=== PATIENT | female | born 1985 | race American Indian/Alaskan Native ===

== ENCOUNTER 2017-02-04 10:32 | Emergency (ER) | payer OTHER ==
[2017-02-04 10:39] VITALS: RESP 18; TEMP 99.8
--- NOTE | 2017-02-04 11:23 | C.PDOC ---
History Of Present Illness Patient is a 31 year old female who presents to the ER with a complaint of a left sided sore throat and left ear pain since yesterday, associated with a subjective fever. Patient states initially she only had a sore throat but now pain has moved to ears. Patient notes pain with swallowing but is tolerating liquids without difficulty. Patient denies ear discharge, hearing loss, possible foreign body in left ear or possible sick contact. L SORE THROAT AND EAR PAIN SINCE YEST. SUBJ FEVER. INITIALLY W SORE THROAT, NOW EAR. NO DC, HEARING LOSS, FB L EAR. PAIN W SWALLOWING BUT TOLERATING LIQUID W/ O DIFF. NO SICK CONTACTS W SAME. EXAM NAD HEENT B/L EAR NEG. THROAT +L TONSILLAR SWELL NO ERYTHEMA, EXUDATE. UVULA MIDLINE. NO DROOL, VOICE WNL. NECK SUPPLE MDM SALT WATER GARGLE, STEROID, NSAIDS. Time Seen by Provider: 02/04/17 11:16 Chief Complaint (Nursing): ENT Problem History Per: Patient History/Exam Limitations: None Onset/Duration Of Symptoms: Days (Onset yesterday) Current Symptoms Are (Timing): Still Present Quality (Ear): denies: Discharge, Foreign Body Symptoms Have Been: Continuous Anticoagulant/Antiplatlet Use?: No Recent Aspirin Use: Unknown Past Medical History Reviewed: Historical Data, Nursing Documentation, Vital Signs Vital Signs: Last Vital Signs Temp 99.8 F H 02/04/17 10:38 Pulse 85 02/04/17 11:32 Resp 18 02/04/17 11:32 BP 110/68 02/04/17 11:32 Pulse Ox 95 02/04/17 11:43 - Medical History PMH: No Chronic Diseases Surgical History: No Surg Hx Family History: States: Unknown Family Hx - Social History Hx Alcohol Use: Yes Hx Substance Use: No - Immunization History Hx Tetanus Toxoid Vaccination: No Hx Influenza Vaccination: No Hx Pneumococcal Vaccination: No Review Of Systems Except As Marked, All Systems Reviewed And Found Negative. Constitutional: Positive for: Fever (Subjective) ENT: Positive for: Ear Pain, Throat Pain, Other (Difficulty swallowing). Negative for: Ear Discharge Physical Exam - Physical Exam Appears: Non-toxic, No Acute Distress Skin: Normal Color, Warm, Dry Head: Atraumatic, Normacephalic Ear(s): Bilateral: Normal Oral Mucosa: Moist Throat: No Erythema, Exudate (Left tonsil), No Drooling, Other (Left sided tonsillar swelling. Uvula midline. Voice within normal limits) Neck: Normal, Normal ROM, Supple Lymphatic: Normal Exam, No Adenopathy Respiratory: Other (No respiratory distress, speaking in complete sentences. ) Neurological/Psych: Oriented x3, Normal Speech, Normal Cognition ED Course And Treatment O2 Sat by Pulse Oximetry: 95 (Room air) Pulse Ox Interpretation: Normal Progress Note: Motrin administered. Medical Decision Making Medical Decision Making: SALT WATER GARGLE, STEROID, NSAIDS. Disposition Counseled Patient/Family Regarding: Diagnosis, Need For Followup, Rx Given - Disposition Referrals: [facility] [Outside] [facility] [Outside] Disposition: HOME/ ROUTINE Disposition Time: 11:22 Condition: GOOD Prescriptions: Acetaminophen [Tylenol Extra Strength] 2 tab PO Q6 #30 tablet Dexamethasone 12 mg PO ONCE #2 tab Ibuprofen [Motrin] 600 mg PO Q6 #30 tab Instructions: Pharyngitis (ED) - Clinical Impression Clinical Impression: Pharyngitis, Otalgia of left ear - Scribe Statement The provider has reviewed the documentation as recorded by the Scribtito Haque All medical record entries made by the Jessiibtito were at my direction and personally dictated by me. I have reviewed the chart and agree that the record accurately reflects my personal performance of the history, physical exam, medical decision making, and the department course for this patient. I have also personally directed, reviewed, and agree with the discharge instructions and disposition.
[2017-02-04 11:33] VITALS: BP 110/68; PULSE 85
[2017-02-04 11:35] VITALS: O2SAT 95
== END 2017-02-04 11:33 | disposition home or self-care (01) ==
LOC: C.ER 10:32
DX: H92.02 Otalgia, left ear (principal); J02.9 Acute pharyngitis, unspecified

== ENCOUNTER 2017-02-08 11:47 | Emergency (ER) | payer OTHER ==
[2017-02-08 12:08] VITALS: BP 128/78; PULSE 65; RESP 20; TEMP 97.5; O2SAT 99
[2017-02-08 13:05] LABS: RBC URINE 2 /hpf (0-3); URINE BACTERIA RARE (<OCC); URINE BILIRUBIN NEGATIVE (NEGATIVE); URINE BLOOD NEGATIVE (NEGATIVE); URINE COLOR Yellow (YELLOW); URINE GLUCOSE (UA) NORMAL (Normal); URINE KETONE NEGATIVE (NEGATIVE); URINE LEUKOCYTE ESTERASE TRACE Leu/uL (Negative); URINE PROTEIN 1+ mg/dL (NEGATIVE); WBC URINE 2 /hpf (0-5)
--- NOTE | 2017-02-08 13:39 | C.PDOC ---
Time Seen by Provider: 02/08/17 13:08 Chief Complaint (Nursing): Abdominal Pain History Per: Patient Onset/Duration Of Symptoms: Days (1), Intermittent Episodes Current Symptoms Are (Timing): Still Present Severity: Moderate Location Of Pain/Discomfort: Suprapubic Quality Of Discomfort: Cramping Associated Symptoms: Nausea, Vomiting Alleviating Factors: None Last Bowel Movement: Today Additional History Per: Prior Records Abnormal Vaginal Bleeding: No Past Medical History Reviewed: Historical Data, Nursing Documentation, Vital Signs Vital Signs: Last Vital Signs Temp 97.5 F L 02/08/17 12:04 Pulse 65 02/08/17 12:04 Resp 20 02/08/17 12:04 BP 128/78 02/08/17 12:04 Pulse Ox 99 02/08/17 13:39 - Medical History PMH: No Chronic Diseases Surgical History: No Surg Hx Family History: States: Unknown Family Hx - Social History Hx Alcohol Use: No Hx Substance Use: No - Immunization History Hx Tetanus Toxoid Vaccination: No Hx Influenza Vaccination: No Hx Pneumococcal Vaccination: No Review Of Systems Except As Marked, All Systems Reviewed And Found Negative. Constitutional: Negative for: Fever, Weakness Cardiovascular: Negative for: Chest Pain Respiratory: Negative for: Shortness of Breath Gastrointestinal: Negative for: Diarrhea, Melena, Hematochezia, Hematemesis, Rectal Pain Genitourinary: Negative for: Dysuria, Vaginal Discharge, Vaginal Bleeding Musculoskeletal: Negative for: Neck Pain, Back Pain Skin: Negative for: Rash Neurological: Negative for: Weakness, Numbness, Seizures, Altered Mental Status , Headache Physical Exam - Physical Exam Appears: Non-toxic, No Acute Distress Skin: Normal Color, Warm, Dry, No Rash Head: Atraumatic, Normacephalic Eye(s): bilateral: PERRL, EOMI Neck: Normal ROM, Supple Cardiovascular: Rhythm Regular Respiratory: Normal Breath Sounds, No Accessory Muscle Use Gastrointestinal/Abdominal: Soft, Tenderness (mild suprapubic), No Guarding, No Rebound Back: No CVA Tenderness Extremity: Normal ROM Neurological/Psych: Oriented x3, Normal Motor, Normal Sensation ED Course And Treatment - Laboratory Results Urine POC: Negative O2 Sat by Pulse Oximetry: 99 Pulse Ox Interpretation: Normal Disposition Counseled Patient/Family Regarding: Studies Performed, Diagnosis, Need For Followup, Rx Given - Disposition Disposition: HOME/ ROUTINE Disposition Time: 13:50 Condition: STABLE Additional Instructions: Follow up with your doctor for further evaluation and treatment. Return to the ER if you develop fever, vaginal bleeding or discharge, pain that moves to right side, worsening of symptoms or if you have any other concerns. Prescriptions: Polyethylene Glycol 3350 [Miralax] 17 gm PO DAILY #7 packet Instructions: Acute Abdominal Pain (ED) - Clinical Impression Clinical Impression: Suprapubic abdominal pain
== END 2017-02-08 14:00 | disposition home or self-care (01) ==
LOC: C.ER 11:47
DX: R10.30 Lower abdominal pain, unspecified (principal)

== ENCOUNTER 2019-01-14 14:58 | Emergency (ER) | payer MEDICAID, OTHER ==
[2019-01-14 15:04] VITALS: O2SAT 99
--- NOTE | 2019-01-14 15:42 | C.PDOC ---
History Of Present Illness 33 year old female presents to ED with complaint of worsening rash to the lower back for the past 2 weeks. Patient describes the rash as itchy and painful. Patient has not taken any medication for pain, but took Benadryl for the itch. Patient has a PMHx of psoriasis and sts this feels lke a flare. She denies fever, difficultly swallowing, difficulty breathing, and SOB. Time Seen by Provider: 01/14/19 15:22 Chief Complaint (Nursing): Abnormal Skin Integrity History Per: Patient History/Exam Limitations: no limitations Onset/Duration Of Symptoms: Other (2 weeks) Current Symptoms Are (Timing): Still Present Location Of Injury: Posterior: Back (lower back; rash) Quality Of Symptoms: Painful, Itching Past Medical History Reviewed: Historical Data, Nursing Documentation, Vital Signs Vital Signs: Last Vital Signs Temp 99 F 01/14/19 15:02 Pulse 83 01/14/19 15:02 Resp 18 01/14/19 15:02 BP 126/88 01/14/19 15:02 Pulse Ox 99 01/14/19 15:02 Primary Care Provider: Karyn Murrell - Medical History PMH: No Chronic Diseases Surgical History: No Surg Hx Family History: States: Unknown Family Hx - Social History Hx Alcohol Use: No Hx Substance Use: No - Immunization History Hx Tetanus Toxoid Vaccination: No Hx Influenza Vaccination: No Hx Pneumococcal Vaccination: No Review Of Systems Constitutional: Negative for: Fever ENT: Negative for: Mouth Swelling, Throat Swelling Respiratory: Negative for: Shortness of Breath, Wheezing Skin: Positive for: Rash (lower back ) Neurological: Negative for: Weakness, Numbness Physical Exam - Physical Exam Appears: Non-toxic, No Acute Distress Skin: Normal Color, Warm, Dry, Other (brown, raised ring-like rash with clear center; diffuse throughout the lower back; no erythema, no warmth) Head: Atraumatic, Normacephalic Neck: Normal ROM, Supple Chest: Symmetrical, No Deformity Cardiovascular: Rhythm Regular, No Murmur Respiratory: No Accessory Muscle Use, No Rales, No Rhonchi, No Wheezing Gastrointestinal/Abdominal: Soft, No Tenderness Extremity: Capillary Refill (<2 seconds) Extremity: Bilateral: Atraumatic, Normal Color And Temperature, Normal ROM Pulses: Left Radial: Normal, Right Radial: Normal Neurological/Psych: Oriented x3, Normal Speech, Normal Cognition ED Course And Treatment O2 Sat by Pulse Oximetry: 99 (in RA) Pulse Ox Interpretation: Normal Medical Decision Making Medical Decision Making: MDM: Exacerbation of psoriasis. Patient given topical steroid and advised to follow up with wardrobe stylist. Disposition Counseled Patient/Family Regarding: Diagnosis, Need For Followup, Rx Given - Disposition Referrals: Karyn Murrell MD [Staff Provider] - Disposition: HOME/ ROUTINE Disposition Time: 15:48 Condition: GOOD Additional Instructions: Follow up with Dr Murrell and with dermatology as soon as possible. Apply thin layer of cream to lower back 2 times a day. Continue to take Benadryl if needed for itch. Prescriptions: Hydrocortisone Butyrate 1 applic TOP BID #15 cream..g. Instructions: Psoriasis (DC) Forms: General Discharge Instructions, [facility] ([place]), Work Excuse - Clinical Impression Clinical Impression: Psoriasis - PA / MONOGRAM [employer]KER / Resident Statement MD/DO has reviewed & agrees with the documentation as recorded. (Silva Foster) - Scribe Statement The provider has reviewed the documentation as recorded by the Scribe (Silva Galloway) All medical record entries made by the Scribe were at my direction and personally dictated by me. I have reviewed the chart and agree that the record accurately reflects my personal performance of the history, physical exam, medical decision making, and the department course for this patient. I have also personally directed, reviewed, and agree with the discharge instructions and disposition.
[2019-01-14 15:59] VITALS: BP 120/84; PULSE 63; RESP 14; TEMP 98.9
== END 2019-01-14 16:03 | disposition home or self-care (01) ==
LOC: C.ER 14:58
DX: L40.9 Psoriasis, unspecified (principal)